=== PATIENT | female | born 1965 | race Caucasian/White ===

== ENCOUNTER 2017-12-04 16:43 | Emergency (ER) | payer OTHER ==
[~2017-12-04] VITALS: Ht 170.2 cm; Wt 65.8 kg
[2017-12-04 16:54] VITALS: Ht 170.2 cm; Wt 65.8 kg
[2017-12-04 19:17] VITALS: BP 140/73
== END 2017-12-04 19:17 | disposition home or self-care (01) ==
LOC: ED 16:43
DX: S93.401A Sprain of unspecified ligament of right ankle, initial encounter (principal); S80.01XA Contusion of right knee, initial encounter; Z88.0 Allergy status to penicillin; W18.30XA Fall on same level, unspecified, initial encounter; Y93.89 Activity, other specified; Y99.8 Other external cause status; Y92.89 Other specified places as the place of occurrence of the external cause
CPT/HCPCS: Q0092